=== PATIENT | female | born 1960 | race Caucasian/White ===

== ENCOUNTER 2016-06-06 17:18 | Emergency (ER) | payer OTHER, SELFPAY ==
--- NOTE | 2016-06-06 17:39 | EDM.PDOC ---
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 next thing she remembers is being around the launch leader. No incontinence of urine or stool. No headache. No tongue biting. According to EMT, she was awake but very confused. She did agree to come to the emergency room for further workup. Pt claims that she did have seizure 12 years ago and was on depakote for 12 years. Wait taking her depakote 1 year ago. Has not had any episodes of seizure in the past 1 year, but had an episode of grandmal episode 1 month ago. Presently awake and alert. Onset: today Onset Date: 06/06/16 Onset Time: 17:00 - Related Data Allergies Allergy/AdvReac Type Severity Reaction Status Date / Time Sulfa (Sulfonamide Allergy Unknown Cannot Verified 03/13/16 10:52 Antibiotics) Remember clarithromycin [From Biaxin] Allergy Cannot Verified 03/13/16 10:52 Remember Home Meds: Home Meds Alendronate Sodium [Fosamax] 1 tab PO WEEKLY 10/15/14 [History] Aspirin [Adult Low Dose Aspirin EC] 81 mg PO DAILY 10/15/14 [History] Cholecalciferol (Vitamin D3) [Vitamin D] 1,000 unit PO DAILY 10/15/14 [History] Hydroxychloroquine Sulfate 1 tab PO BID 10/15/14 [History] amLODIPine [Norvasc] 1 tab PO DAILY 10/15/14 [History] diphenhydrAMINE HCl [Diphenhydramine HCl] 25 mg PO ASDIRECTED PRN 10/15/14 [ History] Past Medical History Musculoskeletal History: Reports: Osteoporosis Neurological History: Reports: Seizure Endocrine/Metabolic History: Reports: Osteoporosis Immunologic History: Reports: SLE, Other (see below) Other Immunologic History: Raynauds syndrome Dermatologic History: Reports: Other (see below) Other Dermatologic History: Lichenoid dermatitis Social & Family History - Tobacco Use Smoking Status *Q: Current Some Day Smoker Years of Tobacco use: 30 - Alcohol Use Days Per Week of Alcohol Use: 3 Number of Drinks Per Day: 2 Total Drinks Per Week: 6 - Recreational Drug Use Recreational Drug Use: No ED ROS GENERAL - Review of Systems Review Of Systems: See Below Constitutional: Denies: fever, chills, night sweats HEENT: Denies: Eye discharge, Hearing loss, Nosebleed, Nose pain, Rhinitis Respiratory: Denies: Shortness of Breath, Wheezing, Cough, Sputum Cardiovascular: Denies: Chest pain, Blood pressure problem, Edema, Lightheadedness Endocrine: Denies: fatigue GI/Abdominal: Denies: Abdominal pain, Diarrhea, Decreased appetite, Nausea, Vomiting : Denies: dysuria, flank pain Musculoskeletal: Denies: neck pain, shoulder pain Skin: Denies: cyanosis, jaundice, pruritis, rash Neurological: Denies: Confusion, Dizziness ED EXAM, GENERAL - Physical Exam Exam: See Below Exam Limited By: No limitations General Appearance: alert, WD/WN, no apparent distress, anxious Eye Exam: bilateral eye: EOMI, PERRL Ears: normal external exam, normal canal, hearing grossly normal, normal TMs Ear Exam: bilateral ear: auricle normal, canal normal, TM normal Nose: normal inspection, normal mucosa, no blood Throat/Mouth: Normal inspection, Normal lips, Normal teeth, Normal gums, Normal oropharynx, Normal voice, No airway compromise Head: atraumatic, normocephalic Neck: normal inspection, supple, non-tender, full range of motion Respiratory/Chest: no respiratory distress, lungs clear, normal breath sounds, no accessory muscle use, chest non-tender Cardiovascular: normal peripheral pulses, regular rate, rhythm, no edema, no gallop, no JVD, no murmur, no rub GI/Abdominal: normal bowel sounds, soft, non tender, no organomegaly, no distention, no abnormal bruit, no mass Extremities: normal inspection, normal range of motion, non-tender, normal capillary refill, no pedal edema Neurological: alert, oriented, CN II-XII intact, normal cognition, normal gait, normal reflexes, no motor/sensory deficits Psychiatric: normal affect, normal mood Course - Vital Signs Text/Narrative:: Pt has been alert and awake all the time she has been in the emergency room. Her CBC, CMP , magnesium and phosphorus levels are normal. EKG is in NSR. Urine drug screen negative. It does appear like an episode of seizure. I have started patient on depakote 875mg oral. Advised seizure precautions. Pt's advised observations inpatient, she declines, but advised to monitor at home closely. I have advised patient to not drive until stabilized on medication. Followup in clinic in 1 wk for recheck. - Orders/Labs/Meds Orders: Active Orders 24 hr Category Date Time Status EKG Documentation Completion [RC] ASDIRECTED Care 06/06/16 17:33 Active DRUG SCREEN, URINE [URCHEM] Stat Lab 06/06/16 17:33 Ordered PHOSPHORUS [CHEM] Stat Lab 06/06/16 17:40 Received Labs: Laboratory Tests 06/06/16 06/06/16 06/06/16 Range/Units 17:40 17:40 17:40 WBC 9.0 (4.0-11.0) K/uL RBC 4.62 (3.80-5.80) M/uL Hgb 14.7 (11.5-16.5) g/dL Hct 42.1 (37.0-47.0) % MCV 91 (76-96) fL MCH 31.8 (27.0-32.0) pg MCHC 34.9 (31.0-35.0) g/dL RDW 14.0 (11.0-16.0) % Plt Count 90 L D (150-500) K/uL MPV 12.0 H (6.0-10.0) fL Neut % (Auto) 64.8 (45.0-70.0) % Lymph % (Auto) 24.4 (20.0-40.0) % Woodruff % (Auto) 9.8 (3.0-10.0) % Eos % (Auto) 0.6 L (1.0-5.0) % Baso % (Auto) 0.4 (0.0-0.5) % Neut # (Auto) 5.84 (2.00-7.50) K/uL Lymph # (Auto) 2.20 (1.50-4.00) K/uL Woodruff # (Auto) 0.88 H (0.20-0.80) K/uL Eos # (Auto) 0.05 (0.04-0.40) K/uL Baso # (Auto) 0.04 (0.02-0.10) K/uL Sodium 138 (136-145) mmol/L Potassium 3.9 (3.5-5.1) mmol/L Chloride 100 (98-107) mmol/L Carbon Dioxide 28.0 (21.0-32.0) mmol/L Anion Gap 13.9 (5.0-15.0) mmol/L BUN 9 (8-26) mg/dL Creatinine 0.68 (0.55-1.02) mg/dL Est Cr Clr Drug Dosing TNP Estimated GFR (MDRD) > 60 (>60) MLS/MIN BUN/Creatinine Ratio 13.2 (6-25) Glucose 93 (74-100) mg/dL Calcium 8.9 (8.5-10.1) mg/dL Magnesium 1.9 (1.8-2.4) mg/dL Total Bilirubin 0.5 (0.0-1.0) mg/dL AST 23 (15-37) U/L ALT 25 (12-78) U/L Alkaline Phosphatase 94 (46-116) U/L Total Protein 7.2 (6.4-8.2) g/dL Albumin 3.6 (3.4-5.0) g/dL Globulin 3.6 (2.2-4.2) g/dL Albumin/Globulin Ratio 1.0 (0.8-2.0) Meds: Medications Discontinued Medications Generic Name Dose Route Start Last Admin Trade Name Freq PRN Reason Stop Dose Admin Divalproex Sodium 875 mg 06/06/16 18:13 Depakote Sprinkle PO 06/06/16 18:14 ONETIME ONE Departure - Departure Time of Disposition: 18:45 Disposition: Home, Self-Care 01 Condition: fair Clinical Impression: Seizure - Problem List & Annotations (1) Seizure SNOMED Code(s): 99524767 Code(s): R56.9 - UNSPECIFIED CONVULSIONS Status: Acute Current Visit: No - Problem List Review Problem List Initiated/Reviewed/Updated: Yes - My Orders Last 24 Hours: My Active Orders 06/06/16 17:33 EKG Documentation Completion [RC] ASDIRECTED DRUG SCREEN, URINE [URCHEM] Stat 06/06/16 17:40 PHOSPHORUS [CHEM] Stat - Assessment/Plan Last 24 Hours: My Active Orders 06/06/16 17:33 EKG Documentation Completion [RC] ASDIRECTED DRUG SCREEN, URINE [URCHEM] Stat 06/06/16 17:40 PHOSPHORUS [CHEM] Stat Assessment:: Seizure episode Plan: Pt has been alert and awake all the time she has been in the emergency room. Her CBC, CMP , magnesium and phosphorus levels are normal. EKG is in NSR. Urine drug screen negative. It does appear like an episode of seizure. I have started patient on depakote 875mg oral. Advised seizure precautions. Pt's advised observations inpatient, she declines, but advised to monitor at home closely. I have advised patient to not drive until stabilized on medication. Followup in clinic in 1 wk for recheck.
[2016-06-06] MEDS ORDERED: Divalproex Sodium Delayed-Release 125 MG Cap.Sprink PO ONE (18:13)
[2016-06-06 18:36] VITALS: BP 125/75
== END 2016-06-06 18:36 | disposition home or self-care (01) ==
LOC: LB.ED 17:18
DX: R56.9 Unspecified convulsions (principal); Z88.2 Allergy status to sulfonamides; Z88.1 Allergy status to other antibiotic agents; Z79.82 Long term (current) use of aspirin; Z79.899 Other long term (current) drug therapy
CPT/HCPCS: 36415; 80053; 80307; 83735; 84100; 85025; 99285; A0425; A0429; A9270

== ENCOUNTER 2018-06-27 12:00 | Emergency (ER) | payer OTHER ==
[2018-06-27 12:06] VITALS: BP 127/87
[2018-06-27] MEDS ORDERED: Ketorolac 60 MG/2 ML SDV IM ONE (12:13)
[2018-06-27] MEDS ORDERED: Ketorolac 60 MG/2 ML SDV ONE (12:19)
--- NOTE | 2018-06-27 13:38 | ER ---
HPI: A 58-year-old lady here with complaints of falling yesterday. 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 She hit the low back area on the 1 fork. The patient states that it did hurt some initially, but she kept working. She worked several more hours to finish her shift. Over the course of the next few hours, her left wrist started to bother her and her left shoulder has been somewhat painful today. The low back pain is constant. She did take ibuprofen last night, +1 Ultram. She has not taken anything today for pain. She did apply heat last evening, which did not seem to help. The patient denies any problems with abdominal pain, nausea, vomiting, or change with bowel or bladder habits. She denies any problems with head or neck pain and there was no bleeding at the time of injury. OBJECTIVE: GENERAL APPEARANCE: The patient is awake and alert. No obvious distress. VITAL SIGNS: Reviewed. She is afebrile. Pulse is 103, blood pressure 127/87, respirations 16. BACK: Examining the patient's low back reveals there is a bruise on the left posterior aspect just about posterior to the iliac crest. The patient has minimal discomfort in this area and most of her discomfort is on the right side, roughly involving the SI joint area. Skin is intact here without any swelling or bruising. Examining the left wrist reveals mild tenderness over the lateral side of the wrist. There is no swelling. The patient has slightly guarded, but full flexion and extension capabilities. EXTREMITIES: Lastly, examining the left shoulder reveals the patient has full range of motion with some discomfort over the rotator cuff muscle area. Drop-arm test is negative. INITIAL TREATMENT: Toradol 60 mg was given IM. I got x-rays of the pelvis as well as the left wrist. I do not see any fracture or acute bony abnormality. DIAGNOSIS: Contusion injuries. TREATMENT PLAN: The patient will use ibuprofen 800 mg t.i.d., taking it with food. She can alternate with Tylenol 2 Extra Strength every 3 hours for the next couple of days and that she should be able to be start weaning off these medications. She is to apply ice to her low back as well as her left wrist and shoulder for 15 minutes or so every 3 to 4 hours while awake for the next day or 2 and then p.r.n. She is not scheduled to work for the next couple of days. Recheck should be next week as needed. KASSY/MODL /[id number]
--- NOTE | 2018-06-28 13:15 | CR ---
DATE OF SERVICE: 06/27/18 CLINICAL DATA: fall with right posterior pelvic pain. AP PELVIS: No priors. There is diffuse osteopenia. No fracture or dislocation. No lytic or blastic bone lesions. There are calcifications within the pelvis that are most likely vascular. [id number] [facility]
--- NOTE | 2018-06-28 13:21 | CR ---
Date of Service: 06/27/2018 Clinical Data: fall. LEFT WRIST: There is diffuse osteopenia. No acute fracture or dislocation. No lytic or blastic bone lesions. [id number] [facility]
== END 2018-06-27 12:46 | disposition home or self-care (01) ==
LOC: LB.ED 12:00
DX: S30.0XXA Contusion of lower back and pelvis, initial encounter (principal); W01.0XXA Fall on same level from slipping, tripping and stumbling without subsequent striking against object, initial encounter
CPT/HCPCS: 72170; 73100; 96372; 99283; J1885

== ENCOUNTER 2019-03-14 14:40 | Emergency (ER) | payer OTHER ==
[2019-03-14 15:05] VITALS: BP 127/81; PULSE 92
--- NOTE | 2019-03-14 16:34 | ER ---
HISTORY OF PRESENT ILLNESS: A 59-year-old lady here with her with complaints of twisting her right foot and ankle last evening while she was coming down some steps. The patient states that it hurts. She thought it might get better today, but after resting for a while, it seems like the pain is getting worse. She states she cannot put much weight on her foot at all because of pain involving the midfoot area and it radiates back to the ankle. They tried putting heat on it, but that did not help. She did take Aleve at home once today. OBJECTIVE: GENERAL APPEARANCE: The patient is awake and alert. No obvious respiratory distress. VITAL SIGNS: Reviewed. She is afebrile. Blood pressure of 127/81, pulse 92. EXTREMITIES: Examining the right foot reveals the skin is intact. There is just minimal swelling over the dorsal aspect of the midfoot area. There is no bruising. The pain does seem to radiate back towards the ankle area. The patient can put minimal weight on her foot, stating that the pain is severe when she puts any amount of pressure on it. LABORATORY DATA AND X-RAY: X-rays of the right foot and right ankle were obtained. I do not see any fracture or acute bony abnormality. DIAGNOSIS: Sprain of the right foot. TREATMENT PLAN: The patient will be given crutches. She is to use ibuprofen alternating with Tylenol every 3 hours while awake. Elevation and ice frequently for the next couple of days, then she can start alternating with heat. Activity should be minimal and recheck should be later on next week in the clinic if her symptoms are not significantly improving. The patient and her have no further questions and agree with the treatment plan. KASSY/MODL /[id number]
--- NOTE | 2019-03-14 21:04 | CR ---
DATE OF SERVICE: 03/14/2019 CLINICAL DATA: Injury 1 day ago. RIGHT ANKLE: No acute fracture or dislocation. There are mild osteoarthritic changes involving multiple joints. No other significant findings. [id number] [facility]
--- NOTE | 2019-03-14 21:09 | CR ---
DATE OF SERVICE: 03/14/2019 CLINICAL DATA: Injury 1 day ago. RIGHT FOOT: There is a defect through the tuft of the distal phalanx of the first toe suspicious for a bony avulsion, age indeterminate. No other evidence of fracture or dislocation. There are osteoarthritic changes involving multiple joints. [id number] [facility]
== END 2019-03-14 15:40 | disposition home or self-care (01) ==
LOC: LB.ED 14:40
DX: S93.601A Unspecified sprain of right foot, initial encounter (principal); X50.1XXA Overexertion from prolonged static or awkward postures, initial encounter
CPT/HCPCS: 73610-RT; 73630-RT; 99283-25

== ENCOUNTER 2023-04-07 16:51 | Emergency (ER) | payer MEDICARE ==
[2023-04-07 17:23] VITALS: BP 124/59; PULSE 91
[2023-04-07 18:08] LABS: HEMATOCRIT 53.5 % (37.0-47.0); MEAN CORPUSCULAR HEMOGLOBIN 32.1 pg (27.0-32.0); MEAN CORPUSCULAR HGB CONC 34.8 g/dL (31.0-35.0); MEAN CORPUSCULAR VOLUME 92 fL (76-96); MEAN PLATELET VOLUME 11.6 fL (6.0-10.0); PH,VENOUS 7.34 (7.31-7.41); PLATELET COUNT,PLT 114 K/uL (150-500); RED BLOOD CELL COUNT 5.79 M/uL (3.80-5.80); RED CELL DISTRIBUTION WIDTH 13.3 % (11.0-16.0); WHITE BLOOD CELL COUNT,WBC 6.7 K/uL (4.0-11.0)
[2023-04-07 18:09] LABS: BASE EXCESS VENOUS 7.3 mm/L (-2-3); BICARBONATE,VENOUS 33.1 mmol/L (23.0-28.0)
[2023-04-07 18:11] LABS: HEMOGLOBIN 18.6 g/dL (11.5-16.5)
[2023-04-07 18:14] LABS: ALBUMIN 3.9 g/dL (3.4-5.0); ANION GAP 12.9 mmol/L (5.0-15.0); BILIRUBIN TOTAL 0.7 mg/dL (0.0-1.0); BUN/CREATININE RATIO 10.5 (6-25); CALCIUM 9.8 mg/dL (8.5-10.1); CARBON DIOXIDE,CO2 32.3 mmol/L (21.0-32.0); CREATININE 0.57 mg/dL (0.55-1.02); EST CRCL DRUG DOSING (CG) 87.37 mL/min; POTASSIUM,K 5.2 mmol/L (3.5-5.1); PROTEIN TOTAL,TP 8.5 g/dL (6.4-8.2)
[2023-04-07 18:19] LABS: A/G RATIO 0.9 (0.8-2.0)
[2023-04-07 18:43] LABS: POIKILOCYTOSIS OCCASIONAL; STOMATOCYTES FEW; TARGET CELLS FEW
[2023-04-07 18:44] LABS: GIANT PLATELETS OCCASIONAL; PLATELET COUNT ESTIMATE ADEQUATE
[2023-04-07] MEDS: Sodium Chloride 0.9% 1,000 ML IV ONE (20:11)
== END 2023-04-07 18:47 | disposition home or self-care (01) ==
LOC: LB.ED 16:51
DX: D58.2 Other hemoglobinopathies (principal); I10 Essential (primary) hypertension; M81.0 Age-related osteoporosis without current pathological fracture; Z88.2 Allergy status to sulfonamides; Z88.1 Allergy status to other antibiotic agents; Z79.82 Long term (current) use of aspirin; Z79.899 Other long term (current) drug therapy; Z90.49 Acquired absence of other specified parts of digestive tract
CPT/HCPCS: 36415; 70450; 80053; 82803; 85025; 99284

== ENCOUNTER 2023-11-19 02:08 | Emergency (ER) | payer MEDICARE, OTHER ==
[2023-11-19 03:23] LABS: BASOPHILS ABSOLUTE AUTO 0.05 K/uL (0.02-0.10); EOSINOPHILS ABSOLUTE AUTO 0.03 K/uL (0.04-0.40); EOSINOPHILS PERCENT AUTO 0.6 % (1.0-5.0); HEMATOCRIT 42.4 % (37.0-47.0); HEMOGLOBIN 14.7 g/dL (11.5-16.5); LYMPHOCYTES ABSOLUTE AUTO 0.95 K/uL (1.50-4.00); LYMPHOCYTES PERCENT AUTO 19.5 % (20.0-40.0); MEAN CORPUSCULAR HEMOGLOBIN 30.7 pg (27.0-32.0); MEAN CORPUSCULAR HGB CONC 34.7 g/dL (31.0-35.0); MEAN CORPUSCULAR VOLUME 89 fL (76-96); MEAN PLATELET VOLUME 12.3 fL (6.0-10.0); MONOCYTES ABSOLUTE AUTO 0.54 K/uL (0.20-0.80); MONOCYTES PERCENT AUTO 11.1 % (3.0-10.0); NEUTROPHILS PERCENT AUTO 67.8 % (45.0-70.0); PLATELET COUNT,PLT 79 K/uL (150-500); RED BLOOD CELL COUNT 4.79 M/uL (3.80-5.80); RED CELL DISTRIBUTION WIDTH 13.5 % (11.0-16.0); WHITE BLOOD CELL COUNT,WBC 4.9 K/uL (4.0-11.0)
[2023-11-19] MEDS ORDERED: Sodium Chloride 0.9% 10 ML Syringe FLUSH PRN (03:23)
[2023-11-19 03:31] LABS: A/G RATIO 0.6 (0.8-2.0); ALBUMIN 2.6 g/dL (3.4-5.0); ANION GAP 9.2 mmol/L (5.0-15.0); BILIRUBIN TOTAL 0.4 mg/dL (0.0-1.0); BUN/CREATININE RATIO 29.8 (6-25); CALCIUM 8.6 mg/dL (8.5-10.1); CARBON DIOXIDE,CO2 29.9 mmol/L (21.0-32.0); CREATININE 0.47 mg/dL (0.55-1.02); EST CRCL DRUG DOSING (CG) 102.54 mL/min; POTASSIUM,K 4.1 mmol/L (3.5-5.1); PROTEIN TOTAL,TP 6.8 g/dL (6.4-8.2)
[2023-11-19] MEDS: levETIRAcetam 500 MG Tab PO ONE (03:51)
[2023-11-19] MEDS: levETIRAcetam 500 MG Tab ONE (03:53)
[2023-11-19 05:10] VITALS: BP 110/54; PULSE 99
[2023-11-21 00:43] LABS: ANTI-NUCLEAR AB ANA,IGG ELISA None Detected (None Detected)
== END 2023-11-19 05:05 | disposition home or self-care (01) ==
LOC: LB.ED 02:08 → SUPCPDRO 02:08 → LB.ED 05:05
DX: G40.909 Epilepsy, unspecified, not intractable, without status epilepticus (principal); E87.1 Hypo-osmolality and hyponatremia; D69.6 Thrombocytopenia, unspecified; I10 Essential (primary) hypertension; J44.9 Chronic obstructive pulmonary disease, unspecified; F17.210 Nicotine dependence, cigarettes, uncomplicated; Z90.49 Acquired absence of other specified parts of digestive tract; Z90.710 Acquired absence of both cervix and uterus; Z79.899 Other long term (current) drug therapy; Z88.2 Allergy status to sulfonamides; Z88.1 Allergy status to other antibiotic agents
CPT/HCPCS: 36415; 70450; 80053; 80307; 85025; 86038; 86140; 99284; A9270-GY

== ENCOUNTER 2024-03-12 04:55 | Emergency (ER) | payer MEDICARE ==
[2024-03-12] MEDS ORDERED: Acetaminophen/oxyCODONE 325-5 MG Tab ONE (05:30)
[2024-03-12] MEDS: Ketorolac 30 MG/ML SDV IM ONE (05:35)
[2024-03-12] MEDS: Acetaminophen/oxyCODONE 325-5 MG Tab PO PRN (05:46)
[2024-03-12 06:30] VITALS: BP 86/58; PULSE 92
== END 2024-03-12 06:00 | disposition home or self-care (01) ==
LOC: LB.ED 04:55
DX: S42.295A Other nondisplaced fracture of upper end of left humerus, initial encounter for closed fracture (principal); I10 Essential (primary) hypertension; J44.9 Chronic obstructive pulmonary disease, unspecified; F17.210 Nicotine dependence, cigarettes, uncomplicated; Z90.49 Acquired absence of other specified parts of digestive tract; Z90.710 Acquired absence of both cervix and uterus; Z88.2 Allergy status to sulfonamides; Z88.1 Allergy status to other antibiotic agents; Z79.899 Other long term (current) drug therapy; W00.0XXA Fall on same level due to ice and snow, initial encounter
CPT/HCPCS: 73030-LT; 96372; 99283; A9270-GY; J1885